=== PATIENT | female | born 1990 | race Two or more races ===

== ENCOUNTER 2024-10-10 11:04 | Emergency (ER) | payer MEDICAID, SELFPAY ==
--- NOTE | 2024-10-10 13:07 | XR_ITS ---
Examination: Pelvic ultrasound, transabdominal, complete Technique: Transabdominal ultrasound of the pelvis performed using grayscale imaging Date and time of exam: October 10, 2024 1408 hrs. Indications: Onset of pelvic pain today Findings: Uterus 8.1 x 4.2 x 5.6 cm Intrauterine device in the lower uterine segment and cervix No uterine mass or intrauterine gestation Free fluid in the right adnexal region Ovaries are obscured by bowel gas Impression: Abnormally low position intrauterine device in the lower uterine segment and cervix No uterine mass or intrauterine gestation Free fluid in the right adnexal region, consider recent rupture of a right ovarian cyst versus pelvic inflammatory disease, clinical correlation advised
--- NOTE | 2024-10-10 13:08 | PD.EDABDPN ---
ED Abdominal Pain RME/HPI General Chief Complaint: Abdominal Pain Stated complaint: ABD PAIN X 0900 Time seen by provider: 10/10/24 11:59 Arrival date/time: 10/10/24 11:04 RME / HPI RME / HPI narrative: 34-year-old female presents emergency department with complaint of pelvic pain that started at 9 AM this morning. Patient states she usually gets this pain around her menstrual cycle. She denies possibility of . She rates her pain currently as a 10 out of 10. Patient states she took ibuprofen at home without relief. She denies fever chills or painful urination. Related Data Home Medications ?Medication ?Instructions ?Recorded ?Confirmed vits no.124-ferrous fum 1 tab PO QDAY 03/27/19 03/16/22 27 mg iron-folic acid 800 mcg tablet ( Vitamin) Previous Rx's ?Medication ?Instructions ?Recorded ondansetron HCl 4 mg tablet 4 mg PO TID PRN nausea and 03/16/22 vomiting #20 tabs Allergies Allergy/AdvReac Type Severity Reaction Status Date / Time No Known Allergies Allergy Verified 10/10/24 11:05 Review of Systems Review of Systems Systems Reviewed: All systems reviewed, normal except as documented Constitutional Constitutional: Reports system reviewed and no additional complaints, except as documented Cardiovascular Cardiovascular: Reports system reviewed and no additional complaints, except as documented Respiratory Respiratory: Reports system reviewed and no additional complaints, except as documented Genitourinary Genitourinary: Reports system reviewed and no additional complaints, except as documented Musculoskeletal Musculoskeletal: Reports system reviewed and no additional complaints, except as documented ED Exam General General appearance: Present alert and in no apparent distress ENT ENT exam: Present normal exam and normal oropharynx Chest Chest inspection: Present normal inspection and symmetric chest wall rise Respiratory Respiratory exam: Present normal lung sounds bilaterally Cardiovascular Cardiovascular exam: Present regular rate and normal rhythm Abdominal Exam Abdominal exam: Present soft and distention Extremities Exam Extremities exam: Present normal inspection and full ROM Course Quality Measures none Orders Category Date Time Status US pelvic complete Stat Exams 10/10/24 13:07 Completed US transvaginal Stat Exams 10/10/24 14:19 Completed HCG Qualitative,Urine Stat Lab 10/10/24 15:14 Completed Urinalysis, C/S if Indicated Stat Lab 10/10/24 15:14 Completed Urine Culture Stat Lab 10/10/24 15:14 Received Morphine Inj Med 10/10/24 13:07 Discontinued 4 mg IM X1 ONE Vital Signs Vital signs: Vital Signs Temperature 98.2 F 10/10/24 13:13 Pulse Rate 91 10/10/24 13:13 Respiratory Rate 18 10/10/24 13:13 Blood Pressure 114/76 10/10/24 13:13 Pulse Oximetry (%) 98 10/10/24 13:13 Oxygen Delivery Method Room Air 10/10/24 13:13 Abdominal Pain MDM MDM Narrative MDM Narrative:: 34yof presents to ED for suprapubic pressure and dysuria that started today. Patient denies fever, n/v, flank pain, hematuria or vaginal discharge. Denies concern for STD. 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 UA negative for leuks, nitrites. Will rx pyridium for symptomatic relief. Patient is well-appearing, afebrile, vitals are stable. Nonsurgical abdomen on exam. Encouraged adequate fluids, mild soaps, cotton underwear, Motrin/Tylenol prn pain. Stable for discharge, RTED precautions given. Patient data External records reviewed:: None Clinical information provided by:: patient Social determinants that could affect healthcare access:: other (specify) (Poor access to healthcare, acculturation difficulty) Patient has the following chronic illnesses:: None How is presenting disease/condition affected by chronic disease/condition?: no chronic disease Evaluation data The following diagnostics were reviewed and interpreted by me:: lab results Lab and/or radiology exams considered but not ordered:: CT abdomen/pelvis: Benign abdomen on exam Interpretation Summary: UA negative for leuks, nitrates Medications / Prescriptions Medications or Prescriptions considered but not ordered:: No antibiotics recommended at this time Medication administrations:: Medication Administration History Discontinued Medications Morphine Sulfate (Morphine Sulf Inj 10 Mg/Ml Vial) 4 mg IM X1 ONE Stop: 10/10/24 13:08 Last Admin: 10/10/24 13:24 Dose: 4 mg Documented By: NOAM hou Consultations Consultation(s) initiated? (list below): No Diagnosis Differential diagnosis abdominal pain: other (UTI, pyelonephritis, kidney stone, vaginitis, STD, Blanca, BV) Most likely diagnosis given after review of the tests above:: Dysuria Admission Indicated Admission indicated?: not indicated Admission Request Was there a request for admission?: No Disposition Plan Disposition Plan: Discharge Discharge Attestation Discharge Attestation: The patient and all family members were given an opportunity to ask questions and understood the discharge instructions. Discharge instructions specifically effects, indications for sooner follow up or return to the emergency department, and the expected course of current diagnosis. Patient condition: Stable Discharge Plan Plan Patient Disposition: HOME (Self Care) Prescriptions/Referrals Prescriptions/Med Rec: No Action Vitamin 27 mg iron- 800 mcg Tablet 1 tab PO QDAY ondansetron HCl 4 mg tablet 4 mg PO TID PRN (Reason: nausea and vomiting) Qty: 20 0RF Referrals: Baljit Blake MD [Primary Care Provider] - In 1 week Problem List Clinical Impression: Pelvic pain, Abdominal pain Patient/Caregiver Discharge Instructions Education Materials: ED Pelvic Pain, Unknown Cause Print Language: Bangladeshi Stand Alone Forms: Melissa Award Info., Patient Portal Info Letter
[2024-10-10 13:13] VITALS: BP 114/76; PULSE 91; RESP 18; TEMP 36.8; O2SAT 98; BMI 33.2
[2024-10-10] MEDS: MORPHINE SULF INJ 10 MG/ML VIAL 4 MG IM (13:24)
--- NOTE | 2024-10-10 14:19 | XR_ITS ---
Examination: Transvaginal ultrasound of the pelvis, complete Technique: Transvaginal sonographic images pelvis performed using pulido scale imaging Exam date and time: October 10, 2024 1434 hrs. Indications: Onset pelvic pain today Findings: Uterus 8.3 x 4.7 x 5.7 cm Intrauterine device abnormally low in position in the cervix No uterine mass Endometrial stripe 0.4 cm Right ovary not visualized, it in the right adnexal region heterogeneous oval mass nonvascular 5.2 x 4.9 x 5.3 cm with internal cystic mass 3.6 x 2.5 x 3.6 cm and internal hyperechoic mass 2.2 x 2.1 x 2.6 cm Left ovary 2.6 x 1.5 x 1.5 cm arterial flow Impression: Right adnexal complex mass 5.2 x 4.9 x 5.3 cm including partially cystic mass 3.6 x 2.5 x 3.6 cm and hyperechoic solid mass 2.2 x 2.1 x 2.6 cm Differential would include complex ovarian tumor, endometrioma, ectopic not excluded in the appropriate clinical setting, the appearance should be clinically correlated Short-term follow-up transvaginal pelvic sonography strongly recommended
[2024-10-10 15:20] LABS: Collection Type, Urine Clean Catch
[2024-10-10 15:36] LABS: HCG Qualitative,Urine Negative
[2024-10-10 15:43] LABS: Bacteria,Urine 1+; Bilirubin,Urine Negative (Negative); Blood,Urine 2+ (Negative); Clarity,Urine Turbid (Clear/Hazy); Color,Urine Lt-Yellow (Lt Yel-Yel); Glucose, Urine Negative (Negative); Ketones,Urine Negative (Negative); Leukocyte Esterase,Urine Positive (Negative); Nitrite,Urine Negative (Negative); PH,Urine 6.5 (5.0-7.0); Protein,Urine Negative (Neg - Trace); RBC,Urine 3 /hpf (0-3); Specific Gravity,Urine 1.019 (1.001-1.035); Squamous Epithelial Cell,Urine 2 /hpf (0-5); Transitional Epi Cells,Urine < 1 /hpf (0-5); Urobilinogen,Urine Negative mg/dL (0.0-1.0); WBC,Urine 4 /hpf (0-5)
[2024-10-10 15:47] LABS: Culture Indicated,Urine Yes
== END 2024-10-10 17:03 | disposition home or self-care (01) ==
PROVIDERS: Physician Assistant; Emergency Provider Emergency Medicine; PCP Family Medicine
DX: R10.2 Pelvic and perineal pain (principal)
CPT/HCPCS: 76830; 76856; 81001; 81025; 87077; 87086; 87186; 96372; 99284; J2270

== ENCOUNTER 2025-04-28 05:40 | Day surgery (SDC) | payer MEDICAID, SELFPAY ==
[2025-04-27 07:13] VITALS: BMI 31.6
--- NOTE | 2025-04-27 07:36 | EKG_ITS ---
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
[2025-04-27 08:41] LABS: Basophils # (Auto) 0.0 Thou/mm3 (0.0-0.2); Basophils % (Auto) 0 % (0-2.5); Eosinophils # (Auto) 0.2 Thou/mm3 (0.0-0.5); Eosinophils % (Auto) 3 % (0-10); Hematocrit 38.4 % (36.0-46.0); Hemoglobin 12.6 g/dL (12.0-16.0); Immature Granulocytes Auto 0.02 Thou/mm3 (0.00-0.00); Lymphocytes # (Auto) 1.9 Thou/mm3 (1.0-4.8); Lymphocytes % (Auto) 22 % (10-50); Mean Corpuscular HGB Conc 32.8 g/dl (31.0-37.0); Mean Corpuscular Hemoglobin 28.3 pg (25.0-35.0); Mean Corpuscular Volume 86 fL (80-100); Monocytes # (Auto) 0.4 Thou/mm3 (0.0-0.8); Monocytes % (Auto) 5 % (0-12); Neutrophils # (Auto) 5.8 Thou/mm3 (1.8-7.7); Neutrophils % (Auto) 70 % (37-80); Nucleated Red Blood Cell # 0.00 Thou/mm3 (0.00-0.00); Nucleated Red Blood Cell % 0 /100 WBC (0); Platelet Count 336 Thou/mm3 (140-440); RDW Standard Deviation 43.0 fL (36.4-46.3); Red Blood Count 4.46 Miln/mm3 (4.00-5.20); White Blood Count 8.3 Thou/mm3 (3.6-11.0)
[2025-04-27 09:09] LABS: HCG,Qualitative Serum Negative
[2025-04-27 09:11] LABS: Alanine Aminotransferase 14 U/L (10-49); Albumin, Serum 4.6 gm/dL (3.5-5.0); Albumin/Globulin Ratio 1.3 (1.2-2.2); Alkaline Phosphatase 90 U/L (46-116); Anion Gap 10 (7-16); Aspartate Amino Transferase 16 U/L (0-34); BUN/Creatinine Ratio 16 Ratio (12-20); Bilirubin,Total 0.5 mg/dL (0.3-1.2); Blood Urea Nitrogen 11 mg/dL (9-23); Calcium 9.2 mg/dL (8.3-10.6); Calcium (Corrected) 9.2 mg/dL (8.5-10.1); Carbon Dioxide 22.9 mMol/L (20.0-31.0); Chloride 108 mMol/L (98-107); Creatinine (Component) 0.7 mg/dL (0.6-1.3); Estimated Creatinine Clearance 106.5 mL/min (>60); Globulin 3.5 gm/dL (2.3-3.5); Glucose 102 mg/dL (74-106); Osmolality,Calculated 280 (275-295); Potassium 4.3 mMol/L (3.4-5.1); Sodium 141 mMol/L (136-145); Total Protein 8.1 gm/dL (5.7-8.2); eGFR > 60 See Note
[2025-04-27 10:27] LABS: Hepatitis A Antibody IgM Non Reactive (Non React); Hepatitis B Core Antibody IgM Non Reactive (Non React); Hepatitis B Surface Antigen Non Reactive (Non React); Hepatitis C Antibody Non Reactive (Non React)
--- NOTE | 2025-04-27 14:26 | SUR.PREOP ---
Pt was notified to continue taking all meds even the day of surgery with a sip of water.
[2025-04-27 15:09] LABS: HIV (1&2) Antibody Rapid Non-Reactive
--- NOTE | 2025-04-27 15:17 | SUR.PREOP ---
Pt notified to come in at 0545 tomorrow for surgery.
[2025-04-28] VITALS (7 sets, daily range): BP systolic 106–121; BP diastolic 60–69; PULSE 70–87; RESP 16–21; TEMP 36.2–36.7; O2SAT 96–99; BMI 31.6
--- NOTE | 2025-04-28 08:52 | SUR.PHASEI ---
0852: Pt. arrived with oral and nasal airway in place, vitals stable, breathing unlabored, no signs of distress, x3 dermabond sites to ABD CDI, no active bleed noted, peripad in place, report received from MD Barnett and Becka DELEON.
--- NOTE | 2025-04-28 08:52 | PD.GYNPROC ---
Operative Note - OCCUPATIONAL PHYSICIAN Procedure Date of procedure: 04/28/25 Procedure Performed: Adhesiolysis drainage of right endometrioma Indication: Complex right ovarian cyst 7 cm No vascularity CA125 [id number] CT scan showing no solid components, no free fluid, no lymphadenopathy Pre-Op diagnosis: Same Post-Op diagnosis: Endometrioma right side Extensive adhesion stage IV endometriosis, obliteration of posterior cul-de-sac Anesthesia type: General Procedure description: Patient was taken to the operating room. General anesthesia was given without any complications.? A time out was given confirming Spencer Kaur was undergoing the following, procedure,allergies, and surgeon. The patient was positioned in the dorsal lithotomy position. The perineum was prepped with Betadine solution per routine.The abdomen was prepped with DuraPrep. Marquez catheter placed to drain the bladder. Then attention was then focused to the vagina. Sponge stick was used for vaginal manipulator. Attention was diverted to the abdomen. An umblical incision was first made, Two towel clips were placed lateral to the umbilicus in order to elevate the abdominal wall.? A hemostat was used to assess the depth to the fascia. While applying countertraction by lifting the towel clips, a Veress needle was used to enter the peritoneal cavity, a initial abdominal pressure of 2 mmHg was noted upon entry. Veress needle used for initial pneumoperitoneum establishment. 5 mm port used for the direct trocar entry the abdomen was then insufflated with CO2 gas to 15mmHg, under the opti-view system was advanced into the peritoneal entry.? The Right lower quadrant was evaluated and a 5-mm incision was made . 5-mm trocar placed under camera surveillance. Left lower quadrant was evaluated and 5 mm trocar was placed. On evaluation, Extensive adhesions involving multiple bowel segments, mesentery, right adnexal structure were seen along with the back of the uterus. Posterior cul-de-sac was obliterated and could not be visualized. Multiple endometriotic lesions were seen in the pelvic wall. Using a blunt probe small adhesions were released in between the right adnexal structure and left bowel segments on an attempt to release the right ovarian cyst from the back of the uterus blunt manipulator was probed however could not be navigated between the right adnexa and the posterior surface of uterus, given the dense adhesions between the right ovary posterior surface of uterus and multiple bowel segments only partial ovarian surface could be visible. Decision was taken to drain the contents of the ovarian cyst as preoperatively and intraoperatively suspicion for malignancy was low. Using needle tip aspirator chocolate colored contents of the right ovarian cyst was drained. The contents were sent for cytology analysis. Pneumoperitoneum was evacuated. Hemostasis ensured and all 3 port sites were closed using 4-0 Monocryl Estimated blood loss (ml): 5 Surgical staff Operation Date: 04/28/25 07:30 Case Staff Anesthesiologist: Shady Barnett RNchemist water purification: Zee Wilkins Diagnosis Problem List Completed Was Problem List Reviewed/Reconciled?: Yes
--- NOTE | 2025-04-28 09:40 | SUR.PHASEII ---
0940: Pt. AAOx4, vitals stable, breathing unlabored, no complaint of pain or nausea, x3 dermabond sites to ABD CDI, no active bleed noted, pt. tolerated sips of water well, pt. ambulated to wheelchair with steady gait and no assist, no complications. Gave discharge instructions to the pt. and her ride using dispensing optician both verbalized understanding and had no further questions. Pt. left with all personal belongings.
--- NOTE | 2025-05-03 11:45 | PD.ANESPROG ---
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 Pre-op, surgeon and I had discussed her case, I had called and spoken with the patient for brief focused hx. She has h/o cerebral aneurysm * 2 that has been treated and other than occasional headache, she denied any problems, she denied any headaches on the day of surgery, and her records were obtained, which included clearance note from neurosurgery and it mentioned for her to continue her 81 mg Aspirin or hold it for as little duration as possible. Everything was discussed with the patient and the surgeon and agreed upon to proceed and her Aspirin was continued without holding. She did well intra-op. I just called and spoke with her on the phone via geological technical officer and she denied any problems from anesthesia and had no questions for me. Shady Barnett MD Anesthesia Progress Note Progress Note Most recent Vital Signs: Last Vital Signs Temp 97.2 F 04/28/25 09:36 Pulse 78 04/28/25 09:36 Resp 17 04/28/25 09:36 BP 109/67 04/28/25 09:36 Pulse Ox 96 04/28/25 09:36 O2 Flow Rate 3 04/28/25 09:07
== END 2025-04-28 09:40 | disposition home or self-care (01) ==
PROVIDERS: Anesthesiology; PCP Family Medicine; Referring Provider Student in an Organized Health Care Education/Training Program; Visit Provider Student in an Organized Health Care Education/Training Program
PROC: (CPT 58662; principal; 2025-04-28 07:30)
DX: N80.329 Endometriosis of the posterior cul-de-sac, unspecified depth (principal); K56.50 Intestinal adhesions [bands], unspecified as to partial versus complete obstruction; Z01.810 Encounter for preprocedural cardiovascular examination
CPT/HCPCS: 58662; 36415; 80053; 80074; 84703; 85025; 86703; 86850; 86900; 86901; 93005; A4217; A4649; J0131; J0690; J1100; J2250; J2371; J2704; J2765; J3010; J3490; A9270; J1805